=== PATIENT | male | born 1985 | race Caucasian/White ===

== ENCOUNTER 2023-09-20 18:31 | Inpatient (IN) | payer OTHER ==
[2023-09-20 19:00] VITALS: BMI 29.0
[2023-09-20] MEDS ORDERED: MAGNESIUM HYDROX 2400MG/30ML ORAL SUSPENSION 30 ML CUP PO PRN (19:32)
[2023-09-20] MEDS ORDERED: NALOXONE HCL 0.4 MG/ML VIAL IM PRN (19:32)
[2023-09-20] MEDS ORDERED: ONDANSETRON *ODT* 4 MG TABLET SL PRN (19:32)
[2023-09-20] MEDS ORDERED: NALOXONE HCL (KLOXXADO) 8 MG SPRAY NS PRN (19:32)
[2023-09-20] MEDS ORDERED: MAG HYDROX/AL HYDROX/SIMETH 30 ML UNIT-DOSE CUP PO PRN (19:32)
[2023-09-20] MEDS ORDERED: DICYCLOMINE HCL 10 MG CAPSULE PO PRN (19:32)
[2023-09-20] MEDS ORDERED: BENZOCAINE/MENTHOL (CHLORASEPTIC ) LOZENGE MM PRN (19:32)
[2023-09-20] MEDS ORDERED: BISMUTH SUBSALICYLATE 524 MG/30 ML PO PRN (19:32)
[2023-09-20] MEDS ORDERED: POLYETHYLENE GLYCOL (HEALTHYLAX) 3350 17 GM PACKET PO PRN (19:32)
[2023-09-20] MEDS ORDERED: BENZONATATE 200 MG CAPSULE PO PRN (19:32)
[2023-09-20] MEDS ORDERED: ACETAMINOPHEN 325 MG TABLET (FP) PO PRN (19:32)
[2023-09-20] MEDS ORDERED: IBUPROFEN 400 MG TABLET (FP) PO PRN (19:32)
[2023-09-20] MEDS ORDERED: guaiFENesin 600 MG TABLET.ER (FP) PO PRN (19:32)
[2023-09-20] MEDS ORDERED: LOPERAMIDE HCL 2 MG CAPSULE PO PRN (19:32)
[2023-09-20] MEDS: cloNIDine HCL 0.1 MG TABLET PO PRN (19:48)
[2023-09-20] MEDS ORDERED: cloNIDine HCL 0.1 MG TABLET ONE (19:48)
[2023-09-20] MEDS ORDERED: methaDONE HCL 10 MG TABLET (FOR DETOX USE ONLY) ONE (20:13)
[2023-09-20] MEDS: methaDONE HCL 10 MG TABLET (FOR DETOX USE ONLY) PO ONE (20:16)
[2023-09-20] MEDS: THIAMINE HCL 100 MG TABLET (FP) PO SCH (22:34)
[2023-09-20] MEDS: METHOCARBAMOL 500 MG TABLET PO PRN (22:34)
[2023-09-20] MEDS: diazePAM 5 MG TABLET PO SCH (22:34)
[2023-09-20] MEDS: MELATONIN 5 MG TABLETS PO SCH (22:35)
[2023-09-21] MEDS: GEMFIBROZIL 600 MG TABLET (FP) PO SCH (07:35)
[2023-09-21] MEDS: LOSARTAN POTASSIUM 25 MG TABLET PO SCH (10:28)
[2023-09-21] MEDS: ESCITALOPRAM OXALATE 10 MG TABLET PO SCH (10:28)
[2023-09-21] MEDS: PRENATAL VITAMINS W/ FOLIC ACID TABLET (FP) PO SCH (10:28)
[2023-09-21 12:00] LABS: HEMATOCRIT 37.4 % (35.4-49); HEMOGLOBIN 12.3 GM/dL (11.7-16.9); MCH 28.7 pg (25.7-33.7); MCHC 32.9 g/dl (32.0-35.9); MEAN CELL VOLUME 87.1 fl (80-96); MEAN PLT VOLUME 8.3 fl (7.5-11.1); PLATELET COUNT 304 10^3/uL (134-434); RDW 14.4 % (11.9-15.9); WHITE BLOOD COUNT 5.1 K/mm3 (4.0-10.0)
[2023-09-21 12:12] LABS: CHLORIDE 108 mmol/L (98-107); POTASSIUM 3.9 mmol/L (3.5-5.1); SODIUM 142 mmol/L (136-145)
[2023-09-21 12:22] LABS: ALBUMIN 3.3 g/dl (3.4-5.0); BLOOD UREA NITROGEN 14.4 mg/dL (7-18); CALCIUM 9.1 mg/dL (8.5-10.1); GLUCOSE,RANDOM 107 mg/dL (74-106)
[2023-09-21 12:23] LABS: ANION GAP 7 mmol/L (4-13); CO2 27 mmol/L (21-32)
[2023-09-21 12:24] LABS: SGPT/ALT 21 U/L (13-61)
[2023-09-21 12:25] LABS: BILIRUBIN,TOTAL 0.2 mg/dL (0.2-1); CREATININE 0.7 mg/dL (0.55-1.3); SGOT/AST 18 U/L (15-37); TOT PROT 6.8 g/dl (6.4-8.2)
[2023-09-21 12:26] LABS: ALK PHOS 51 U/L (45-117)
[2023-09-21] MEDS: SUVOREXANT 10 MG TABLET PO PRN (22:37)
[2023-09-21] MEDS: hydrOXYzine PAMOATE 25 MG CAPSULE (FP) PO PRN (22:38)
[2023-09-22] MEDS: diazePAM 5 MG TABLET PO SCH (05:36)
[2023-09-22] MEDS: methaDONE HCL 10 MG TABLET (FOR DETOX USE ONLY) PO ONE (10:18)
[2023-09-22] MEDS: diazePAM 5 MG TABLET PO PRN (10:18)
[2023-09-22] MEDS: IBUPROFEN 600 MG TABLET (FP) PO PRN (19:49)
[2023-09-23] MEDS: diazePAM 5 MG TABLET PO SCH (05:48)
[2023-09-23] MEDS: amLODIPine BESYLATE 10 MG TABLET (FP) PO SCH (12:08)
[2023-09-23] MEDS: cloNIDine HCL 0.1 MG TABLET PO PRN (20:45)
[2023-09-24] MEDS: diazePAM 5 MG TABLET PO ONE ×2 (05:46→14:09)
[2023-09-24] MEDS: methaDONE HCL 10 MG TABLET (FOR DETOX USE ONLY) PO ONE (09:34)
[2023-09-24] MEDS: SUVOREXANT 10 MG TABLET PO ONE (23:21)
[2023-09-25] MEDS: diazePAM 5 MG TABLET PO ONE (06:09)
[2023-09-25 06:34] VITALS: BP 127/84; PULSE 96; RESP 17; TEMP 98
[2023-09-25] MEDS ORDERED: SUVOREXANT 10 MG TABLET PO ONE (22:00)
== END 2023-09-25 09:10 | disposition home or self-care (01) | DRG 773 ==
LOC: YASAS 18:31 → Y6N 19:41
PROVIDERS: ADMIT Allergy & Immunology; ATTEND Surgery
PROC: HZ2ZZZZ Detoxification Services for Substance Abuse Treatment (ICD-10-PCS; principal; 2023-09-20)
DX: F11.23 Opioid dependence with withdrawal (principal); F10.230 Alcohol dependence with withdrawal, uncomplicated; F41.9 Anxiety disorder, unspecified; E78.5 Hyperlipidemia, unspecified; I10 Essential (primary) hypertension; M54.89 Other dorsalgia; G89.29 Other chronic pain; Z87.891 Personal history of nicotine dependence; Z86.69 Personal history of other diseases of the nervous system and sense organs; Z86.19 Personal history of other infectious and parasitic diseases
CPT/HCPCS: 36415; 80053; 80307; 85027; 86780; 93005; 93010